=== PATIENT | female | born 1950 | race African-American/Black ===

== ENCOUNTER 2020-06-26 16:37 | Emergency (ER) | payer MEDICARE ==
[2020-06-26] MEDS ORDERED: predniSONE 20 MG TAB ONE (17:21)
[2020-06-26] MEDS ORDERED: traMADol HCl 50 MG TAB ONE (17:21)
[2020-06-26] MEDS ORDERED: valACYclovir 500 MG TAB ONE (17:21)
== END 2020-06-26 17:35 | disposition home or self-care (01) ==
LOC: BURERS 16:37
DX: B02.9 Zoster without complications (principal); E11.9 Type 2 diabetes mellitus without complications; I10 Essential (primary) hypertension; Z79.84 Long term (current) use of oral hypoglycemic drugs; Z79.899 Other long term (current) drug therapy
CPT/HCPCS: 99282; J7512

== ENCOUNTER 2020-07-06 10:04 | Emergency (ER) | payer MEDICARE ==
[2020-07-06] MEDS ORDERED: Morphine 2 MG/ML VIAL ONE ×3 (10:58→11:42)
[2020-07-06] MEDS ORDERED: Morphine 4 MG/ML VIAL ONE ×2 (10:58→11:41)
[2020-07-06] MEDS ORDERED: methylPREDNISolone Sod Succ/PF 125 MG/2 ML VIAL ONE (11:18)
[2020-07-06 11:27] LABS: #Eosinphils 0.1 thou/uL (0.0-0.7); #Lymphocytes 1.9 thou/uL (1.20-3.40); #Monocytes 0.3 thou/uL (0.11-0.59); #Neutrophils 5.1 thou/uL (1.40-6.50); %Basophils 0.4 % (0.0-1.0); %Eosinophils 1.7 % (0.0-10.0); %Lymphocytes 25.7 % (21.0-51.0); %Neutrophils 68.1 % (42.0-75.0); Hemoglobin 13.4 g/dL (12.0-16.0); Mean Corpuscular Hemoglobin 31.3 pg (27.0-31.0); Mean Corpuscular Volume 97.8 fL (78.0-98.0); Platelet Count 297 thou/uL (130-400); RBC Distribution Width 15.7 % (11.5-14.5); Red Blood Cell (RBC) Count 4.29 mill/uL (4.20-5.40); White Blood Cell (WBC) Count 7.4 thou/uL (4.8-10.8)
[2020-07-06] MEDS ORDERED: Morphine 10 MG/ML VIAL ONE (11:38)
[2020-07-06 11:43] LABS: ALT (SGPT) 11 U/L (8-55); AST (SGOT) 13 U/L (5-34); Albumin 4.2 g/dL (3.4-4.8); Alkaline Phosphatase 78 U/L (40-110); Anion Gap 15 mmol/L (10-20); BUN (Urea Nitrogen) 7 mg/dL (9.8-20.1); Bilirubin, Total 0.4 mg/dL (0.2-1.2); Calc. Creatinine Clearance 0 mL/min (70-130); Calcium 8.9 mg/dL (7.8-10.44); Carbon Dioxide 25 mmol/L (23-31); Chloride 103 mmol/L (98-107); Globulin 3.6 g/dL (2.4-3.5); Glucose 155 mg/dL (80-115); Lipase 12 U/L (8-78); Protein, Total 7.8 g/dL (5.8-8.1); Sodium 139 mmol/L (136-145)
[2020-07-06] MEDS ORDERED: predniSONE 20 MG TAB ONE (13:12)
[2020-07-06] MEDS ORDERED: Ketorolac Tromethamine 30 MG/ML VIAL ONE (13:13)
[2020-07-06 14:18] LABS: Bilirubin Negative (Negative); Blood, Urine Negative (Negative); Clarity Clear (Clear); Glucose, Urine (Dipstick) Negative (Negative); Ketone, Urine Negative (Negative); Leukocyte Negative (Negative); Nitrite Negative (Negative); Protein, Urine (Dipstick) Negative (Neg-Trace); Urobilinogen 0.2 mg/dL (Less than 2); pH, Urine 8.5 (5.0-9.0)
== END 2020-07-06 13:21 | disposition home or self-care (01) ==
LOC: BURERS 10:04
DX: M54.41 Lumbago with sciatica, right side (principal); R10.31 Right lower quadrant pain; E78.5 Hyperlipidemia, unspecified; E78.00 Pure hypercholesterolemia, unspecified; I10 Essential (primary) hypertension; E11.9 Type 2 diabetes mellitus without complications
CPT/HCPCS: 74176; 80053; 81003; 83605; 83690; 85025; J2270; 36415; 96372; J1885; J2930; J7512